=== PATIENT | female | born 1980 | race Caucasian/White ===

== ENCOUNTER 2017-06-23 11:32 | Emergency (ER) | payer OTHER, MEDICAID ==
[~2017-06-23] VITALS: Ht 157.5 cm; Wt 57.1 kg
[~2017-06-23 11:32] MED LIST: ACETAMINOPHEN-1 EAC1 PO; ADDERALL 20 MG20 M1; AMOXICILLIN500 M1 PO; APRI1 EACH; BACTRIM DS TAB1 EACH PO; IBUPROFEN 600600 M1 PO; INDOMETHACIN 2525 MG PO; KLONOPIN1 MG; MEDROLDOSEPACK PO; NOHOMEMEDICATIONS; NORCO 5-325 TA1 EACH PO; PENICILLIN V P500 MG PO; PEPCID20 MG PO; PERCOCET 5-3251 EACH PO; PREDNISONE 10 M10 MG PO; PREDNISONE 20 M20 MG PO; TRIAMCINOLONE A15 G1 TP; TRIAMCINOLONE A80 G2 TOP; VENTOLIN HFA 1818 GM INH
[2017-06-23] MEDS ORDERED: HYDROCODONE-AP1 EAC6 PO (11:58)
[2017-06-23] MEDS ORDERED: ROBAXIN 750 MG750 M1 PO (11:58)
[2017-06-23 12:21] VITALS: BP 145/70
== END 2017-06-23 12:21 | disposition home or self-care (01) ==
LOC: M.ERS 11:32
DX: M54.5 Low back pain (principal); F90.9 Attention-deficit hyperactivity disorder, unspecified type; Z88.5 Allergy status to narcotic agent; Z88.6 Allergy status to analgesic agent; Z91.041 Radiographic dye allergy status

== ENCOUNTER 2017-06-26 14:36 | Emergency (ER) | payer OTHER, MEDICAID ==
[~2017-06-26] VITALS: Ht 157.5 cm; Wt 57.1 kg
[~2017-06-26 14:36] MED LIST changes: +HYDROCODONE-AP1 EAC6 PO; +ROBAXIN 750 MG750 M1 PO
[2017-06-26 14:42] VITALS: BP 132/74
[2017-06-26] MEDS ORDERED: FLEXERIL PO (15:04)
[2017-06-26] MEDS ORDERED: MEDROLDOSEPACK PO (15:05)
== END 2017-06-26 15:14 | disposition home or self-care (01) ==
LOC: M.ERS 14:36
DX: S70.01XA Contusion of right hip, initial encounter (principal); M54.32 Sciatica, left side; F90.9 Attention-deficit hyperactivity disorder, unspecified type; F17.200 Nicotine dependence, unspecified, uncomplicated; Z91.041 Radiographic dye allergy status; Z88.5 Allergy status to narcotic agent; Z88.6 Allergy status to analgesic agent; W18.2XXA Fall in (into) shower or empty bathtub, initial encounter; Y93.89 Activity, other specified; Y92.89 Other specified places as the place of occurrence of the external cause; Y99.8 Other external cause status

== ENCOUNTER 2017-07-11 10:55 | Emergency (ER) | payer OTHER, MEDICAID ==
[~2017-07-11] VITALS: Ht 157.5 cm; Wt 56.2 kg
[~2017-07-11 10:55] MED LIST changes: +FLEXERIL PO
[2017-07-11 11:04] VITALS: BP 146/94
[2017-07-11] MEDS ORDERED: CLONAZEPAM 1 MG1 M1 PO (11:11)
[2017-07-11 11:32] LABS: ABSOLUTE BASOPHILS 0.1 thou/uL (0.0-0.2); ABSOLUTE EOSINOPHILS 0.2 thou/uL (0.0-0.7); ABSOLUTE LYMPHOCYTES 3.3 thou/uL (0.8-5.3); ABSOLUTE MONOCYTES 0.6 thou/uL (0.0-1.2); ABSOLUTE NEUTROPHILS 6.8 thou/uL (1.6-8.1); BASOPHILS 0.7 %; HEMATOCRIT 37.4 % (37.0-47.0); HEMOGLOBIN 12.5 gm/dL (12.0-15.0); MCH 29.1 pg (26.0-34.0); MCHC 33.4 g/dL (28.0-37.0); MONOCYTES 5.8 %; MPV 7.1 fl. (7.2-11.1); NUCLEATED RBCS 0 /100WBC; PLATELET COUNT* 368 thou/uL (150-400); POLYS 61.5 %; RDW-CV 13.2 % (10.5-14.5); WBC 11.1 thou/uL (4.0-11.0)
[2017-07-11 11:41] LABS: ANION GAP 9 mmol/L (7-16); BUN 11 mg/dL (7-18); CALCIUM 8.7 mg/dL (8.5-10.1); CHLORIDE 101 mmol/L (98-107); CO2 27 mmol/L (21-32); CREATININE 0.9 mg/dL (0.6-1.3); GLUCOSE 150 mg/dL (70-99); POTASSIUM 3.2 mmol/L (3.5-5.1); SODIUM 137 mmol/L (136-145)
[2017-07-11 11:45] LABS: APTT 30.1 Seconds (25.0-31.3); INR 1.1; PROTIME 10.4 Seconds (9.20-11.50)
[2017-07-11 11:51] LABS: ALBUMIN 3.7 g/dL (3.4-5.0); ALKALINE PHOSPHATASE 58 U/L (46-116); LIPASE 83 U/L (73-393); NT-PRO BRAIN NAT PEPTIDE 78 pg/mL (<300); SGOT 18 U/L (15-37); SGPT 23 U/L (30-65); TOTAL BILIRUBIN 0.7 mg/dL (<0.1-1.0); TOTAL PROTEIN 7.3 g/dL (6.4-8.2); TROPONIN-I LEVEL <0.06 ng/mL (<0.06)
--- NOTE | 2017-07-11 12:26 | NUR ---
PT STATES SHE DOES NOT LIKE HOW THE NITRO MAKES HER FEEL. PT CONSENTED TO TAKE THE 2ND NITRO PILL. PT'S BLOOD PRESSURE BEFORE TAKING THE 2ND NITROGLYCERIN IS 141/96.
[2017-07-11 14:06] VITALS: BP 140/85
[2017-07-11 15:38] VITALS: BP 131/88
--- NOTE | 2017-07-11 16:34 | CARD ---
[address] [address] CARDIAC CATH REPORT Name: ANGELIA MELO Room: [facility]- ADM IN M.R.#: [id number] Admission: 07/11/17 Attend Phys: Celia Coffey Discharge: Date of : 80 Report #: [id number] THIS REPORT FOR: //name// APPROVED REPORT Patient Details Patient Status: ED Room #: The patient is a 36 year-old female Event Personnel Remy Marquez Ict Sales Assistant, Brittany Jackson RN Horn Player, Joaquin Winters (R) Monitor, AmyMary correa RTR Scrub Procedures Performed Left Heart Cath w/or w/o Coronaries Procedure Narrative A 6fr Ultimum Sheath sheath was inserted into the Right Femoral Artery. Coronary angiography was performed using coronary diagnostic catheters. The right coronary system was accessed and visualized with a Diagnostic JR4 catheter. The left coronary system was accessed and visualized with a Diagnostic JL 4 catheter. The left ventricle was accessed and visualized with a Diagnostic Angled Pig catheter. Closure device was deployed with a Fr MynxGrip 6/7F. The patient tolerated the procedure well and there were no complications associated with the procedure. Intraoperative Conscious Sedation Sedation start time: 14:28 Case end Time: 15:01 Fentanyl 75 mcg Versed 3 mg Fluoro Time: 1.7 minutes Dose: DAP 27703 cGycm2 253 mGy Contrast Type and Amount: Omnipaque 105 ml Diagnostic Cath Left Main Normal and long. LAD Normal. Diagonal 1 Large branched and normal. Diagonal 2 Moderate caliber normal. Circumflex Normal. OM1 Large and branched and normal. Right Coronary Normal[place] [address] CARDIAC CATH REPORT Name: ANGELIA MELO Room: [address] IN [facility]#: [id number] Admission: 07/11/17 Attend Phys: Celia Coffey Discharge: Date of : 80 Report #: [id number] RPLV Normal. Left Ventriculography The left ventricle is normal in size with normal contractility. The left ventricular ejection fraction is estimated to be 60-65%. Hemodynamics The aortic pressure is 118/74 mmHg with a mean of 92 mmHg. The left ventricular pressure is 156/3 mmHg with a mean of mmHg. The left ventricular end diastolic pressure is 13 mmHg. Conclusion 1. Normal coronary arteries. 2. Normal left ventricular systolic function. 3. Normal left ventricular end-diastolic pressure. Recommendations 1. Continue current medical. Medications Administered 1. Smoking cessation strongly advised. <ELECTRONICALLY SIGNED> By: Remy Marquez MD, [facility] 07/11/17 1634 1634 1634[facility] Hospital[facility]igel Marquez MD, FACC /INF
--- NOTE | 2017-07-11 16:36 | EKG ---
[place] [address] ELECTROCARDIOGRAM REPORT Name: KAMERONANGELIA LOPEZ Room: [place] [address] ADM IN .R.#: [id number] Admission: 07/11/17 Attend Phys: Celia Coffey Discharge: Date of : 80 Report #: [id number] THIS REPORT FOR: //name// [facility] ED Test Date: 2017-07-11 Test Time: 12:42:16 Pat Name: ANGELIA MELO Department: Room: [facility] Gender: F C[place] Report Developer: Donald SIMON : 1980 Requested By: Marty Bull Order Number: [id number] MD: Remy Marquez Measurements Intervals [place] Rate: 97 P: 79 AL: 116 QRS: 81 QRSD: 90 T: -88 QT: 343 QTc: 436 Interpretive Statements Sinus rhythm Borderline short AL interval Borderline repolarization abnormality No previous ECG available for comparison Electronically Signed On 07-11-2017 16:36:36 SALES AND MARKETING ANALYST by Remy Marquez [email or web address] <ELECTRONICALLY SIGNED> By: Remy Marquez MD, [facility] 07/11/17 1636 1242 1242 Remy Marquez MD, FACC /EPI
--- NOTE | 2017-07-11 16:36 | EKG ---
[place] [address] ELECTROCARDIOGRAM REPORT Name: KAMERONANGELIA LOPEZ Room: [place] [address] ADM IN .R.#: [id number] Admission: 07/11/17 Attend Phys: Celia Coffey Discharge: Date of : 80 Report #: [id number] THIS REPORT FOR: //name// [facility] ED Test Date: 2017-07-11 Test Time: 11:04:42 Pat Name: ANGELIA MELO Department: Room: [facility] Gender: F House Calls Nurse: : 1980 Requested By: Marty Bull Order Number: [id number] MD: Remy Marquez Measurements Intervals [place] Rate: 90 P: 78 GA: 125 QRS: 81 QRSD: 92 T: 49 QT: 369 QTc: 452 Interpretive Statements Sinus rhythm Minimal ST depression, inferior leads No previous ECG available for comparison Electronically Signed On 07-11-2017 16:36:00 DOCUMENT CONTROLLER by Remy Marquez [email or web address] <ELECTRONICALLY SIGNED> By: Remy Marquez MD, [facility] 07/11/17 1636 1104 1104 Remy Marquez MD, FACC /EPI
[2017-07-11 16:55] VITALS: BP 131/88
--- NOTE | 2017-07-12 08:51 | CON ---
[address] [address] CONSULTATION Name: ANGELIA MELO Room: [place] [address] ADM IN M.R.#: [id number] Admission: 07/11/17 Attend Phys: Celia Coffey Discharge: Date of : 80 Report #: [id number] THIS REPORT FOR: //name// CC: Dr. Armand BOB physician/PCP Jared Hua INDICATION: Unstable angina. HISTORY OF PRESENT ILLNESS: The patient is a 36-year-old white female whose only known cardiac risk factor is tobacco use and family history of premature atherosclerotic coronary artery disease. She does not know whether she has high blood pressure, hyperlipidemia or diabetes. Last evening, she had midsternal chest discomfort radiating to the left shoulder and jaw and down the left arm. She had recurrence of this discomfort this morning. She was seen in the Emergency Room. Her initial EKG was fairly unremarkable with recurrent arm and neck pain. She had another EKG that showed significant ST-segment depression suggesting ischemia. The patient denies any prior cardiac history. She denies orthopnea. She does have some mild dyspnea on exertion. She is without other cardiac complaints at this time. PAST MEDICAL HISTORY: 1. ADHD. 2. Chronic tobacco use. 3. Cervical dysplasia. PAST SURGICAL HISTORY: Cervical intervention for cervical dysplasia. FAMILY HISTORY: The patient's father had his first myocardial infarction in his 40s. in his 50s. SOCIAL HISTORY: The patient smokes a pack of cigarettes daily, drinks alcohol occasionally. She is . ALLERGIES: IV CONTRAST. CURRENT MEDICATIONS: Adderall 20 mg daily, clonazepam 1 mg p.r.n. REVIEW OF SYSTEMS: A 14-point review of systems is positive for remote possible history of seizures. She has a cough that is nonproductive. She has occasional palpitations. She has chest discomfort as outlined above. She reports cervical dysplasia, remote history of anemia. She has seasonal allergies. She has medical allergies as outlined above. She reports anxiety without depression. She has partial upper plate. Otherwise, 14-point review [place] [address] CONSULTATION Name: ANGELIA MELO Room: [address] IN [facility]#: [id number] Admission: 07/11/17 Attend Phys: Celia Coffey Discharge: Date of : 80 Report #: [id number] PHYSICAL EXAMINATION: VITAL SIGNS: Stable. Blood pressure 132/87, pulse 97 regular. GENERAL: This is a pleasant young lady who does not appear to be in acute distress. Mood and affect appropriate. HEENT: Extraocular muscles intact. Mucous membranes moist. NECK: Shows no jugular venous distention. There are no carotid bruits. CHEST: Reveals clear lung rincon without wheezes, rales or rhonchi. CARDIOVASCULAR: Reveals a regular rhythm with normal S1 and S2. I do not appreciate gallop or murmur. ABDOMEN: Reveals normal bowel sounds. The abdomen is soft, nontender. EXTREMITIES: Shows no edema. Peripheral pulses are 2+ and easily palpable. SKIN: Warm and dry. LABORATORY DATA: A 12-lead EKG shows sinus rhythm with ST segment depression diffusely suggestive of ischemia. Portable chest x-ray shows no acute process. Labs reviewed. Initial troponin less than 0.06. IMPRESSION AND RECOMMENDATIONS: 1. The patient is having typical chest pain with EKG changes suggestive of at least unstable angina. We will proceed to the cardiac catheterization lab for angiography and possible percutaneous coronary intervention. She will be premedicated with Solu-Medrol for her CONTRAST ALLERGY. 2. Chronic tobacco use, smoking cessation advised. 3. Lipid status unknown. We will check fasting lipid profile. <ELECTRONICALLY SIGNED> By: Remy Marquez MD, FACC 07/12/17 0851 1328 1806Remy Marquez MD, FACC /nt
[2017-07-12] MEDS ORDERED: ASPIR 8181 MG PO (19:55)
[2017-07-12] MEDS ORDERED: HYDROCODONE-AP1 EAC6 PO (20:25)
== END 2017-07-11 16:55 | disposition home or self-care (01) ==
LOC: M.CL 10:55 → M.ERS 10:55 → M.TBA-ER 13:42 → M.ERS 13:42
PROVIDERS: Emergency Medicine Emergency Medical Services
DX: I20.0 Unstable angina (principal); F90.9 Attention-deficit hyperactivity disorder, unspecified type; F41.9 Anxiety disorder, unspecified; F17.200 Nicotine dependence, unspecified, uncomplicated; Z91.041 Radiographic dye allergy status; Z88.5 Allergy status to narcotic agent; Z88.6 Allergy status to analgesic agent

== ENCOUNTER 2017-07-12 19:39 | Emergency (ER) | payer OTHER, MEDICAID ==
[~2017-07-12] VITALS: Ht 157.5 cm; Wt 56.7 kg
[~2017-07-12 19:39] MED LIST changes: +CLONAZEPAM 1 MG1 M1 PO
[2017-07-12 19:51] VITALS: BP 132/79
[2017-07-12] MEDS ORDERED: ASPIR 8181 MG PO (19:55)
[2017-07-12] MEDS ORDERED: HYDROCODONE-AP1 EAC6 PO (20:25)
== END 2017-07-12 20:35 | disposition home or self-care (01) ==
LOC: M.ERS 19:39
DX: G89.18 Other acute postprocedural pain (principal); F41.9 Anxiety disorder, unspecified; F90.9 Attention-deficit hyperactivity disorder, unspecified type; F17.200 Nicotine dependence, unspecified, uncomplicated; Z88.5 Allergy status to narcotic agent; Z88.6 Allergy status to analgesic agent; Z91.041 Radiographic dye allergy status

== ENCOUNTER 2017-07-24 17:23 | Emergency (ER) | payer OTHER, MEDICAID ==
[~2017-07-24] VITALS: Ht 157.5 cm; Wt 56.2 kg
[~2017-07-24 17:23] MED LIST changes: +ASPIR 8181 MG PO
[2017-07-24] MEDS ORDERED: CLONAZEPAM 0.50.5 M1 PO (17:54)
[2017-07-24 18:06] VITALS: BP 133/86
== END 2017-07-24 18:08 | disposition home or self-care (01) ==
LOC: M.ERS 17:23
DX: F41.9 Anxiety disorder, unspecified (principal); Z76.0 Encounter for issue of repeat prescription; F90.9 Attention-deficit hyperactivity disorder, unspecified type; F17.200 Nicotine dependence, unspecified, uncomplicated; Z88.6 Allergy status to analgesic agent; Z91.041 Radiographic dye allergy status; Z88.5 Allergy status to narcotic agent

== ENCOUNTER 2017-08-24 11:09 | Emergency (ER) | payer OTHER, MEDICAID ==
[~2017-08-24] VITALS: Ht 157.5 cm; Wt 56.7 kg
[~2017-08-24 11:09] MED LIST changes: +CLONAZEPAM 0.50.5 M1 PO
[2017-08-24] MEDS ORDERED: HYDROCODONE-AP1 EAC6 PO (11:36)
[2017-08-24 11:38] VITALS: BP 136/68
== END 2017-08-24 11:45 | disposition home or self-care (01) ==
LOC: M.ERS 11:09
DX: M54.5 Low back pain (principal); F90.9 Attention-deficit hyperactivity disorder, unspecified type; F41.9 Anxiety disorder, unspecified; Z88.6 Allergy status to analgesic agent; Z91.041 Radiographic dye allergy status

== ENCOUNTER 2018-02-13 20:59 | Emergency (ER) | payer OTHER, MEDICAID ==
[~2018-02-13] VITALS: Ht 157.5 cm; Wt 72.6 kg
[2018-02-13] MEDS ORDERED: NABUMETONE 750750 M1 PO (21:57)
[2018-02-13] MEDS ORDERED: AUGMENTIN 875-1 EACH PO (21:57)
[2018-02-13] MEDS ORDERED: MEDROLDOSEPACK PO (21:57)
[2018-02-13] MEDS ORDERED: NORCO 5-325 TA1 EACH PO (21:57)
[2018-02-13 22:12] VITALS: BP 127/77
== END 2018-02-13 22:15 | disposition home or self-care (01) ==
LOC: M.ERS 20:59
DX: H66.92 Otitis media, unspecified, left ear (principal); M54.16 Radiculopathy, lumbar region; F41.9 Anxiety disorder, unspecified; F90.9 Attention-deficit hyperactivity disorder, unspecified type; F17.210 Nicotine dependence, cigarettes, uncomplicated; Z91.041 Radiographic dye allergy status; Z88.6 Allergy status to analgesic agent

== ENCOUNTER 2018-03-31 15:37 | Emergency (ER) | payer OTHER, MEDICAID ==
[~2018-03-31] VITALS: Ht 157.5 cm; Wt 52.6 kg
[~2018-03-31 15:37] MED LIST changes: +AUGMENTIN 875-1 EACH PO; +NABUMETONE 750750 M1 PO
[2018-03-31] MEDS ORDERED: NORCO 5-325 TA1 EACH PO (16:04)
[2018-03-31] MEDS ORDERED: MEDROLDOSEPACK PO (16:04)
[2018-03-31 16:29] VITALS: BP 131/77
== END 2018-03-31 16:30 | disposition home or self-care (01) ==
LOC: M.ERS 15:37
DX: M54.32 Sciatica, left side (principal); F41.9 Anxiety disorder, unspecified; F17.210 Nicotine dependence, cigarettes, uncomplicated; Z88.5 Allergy status to narcotic agent; Z91.041 Radiographic dye allergy status

== ENCOUNTER 2018-09-08 15:31 | Emergency (ER) | payer OTHER, MEDICAID ==
[~2018-09-08] VITALS: Ht 157.5 cm; Wt 53.5 kg
[2018-09-08] MEDS ORDERED: DOXYCYCLINE 10100 MG PO (15:40)
[2018-09-08] MEDS ORDERED: NAPROSYN500 MG PO (17:06)
[2018-09-08] MEDS ORDERED: MEDROLDOSEPACK PO (17:06)
[2018-09-08] MEDS ORDERED: NORCO 5-325 TA1 EACH PO (17:06)
[2018-09-08 17:14] VITALS: BP 139/93
== END 2018-09-08 17:15 | disposition home or self-care (01) ==
LOC: M.ERS 15:31
DX: M54.42 Lumbago with sciatica, left side (principal); M54.41 Lumbago with sciatica, right side; G89.29 Other chronic pain; F41.9 Anxiety disorder, unspecified; Z88.5 Allergy status to narcotic agent; Z91.041 Radiographic dye allergy status

== ENCOUNTER 2018-12-23 12:44 | Emergency (ER) | payer OTHER ==
[~2018-12-23] VITALS: Ht 157.5 cm; Wt 57.1 kg
[~2018-12-23 12:44] MED LIST changes: +DOXYCYCLINE 10100 MG PO; +NAPROSYN500 MG PO
[2018-12-23] MEDS ORDERED: ASPIR 8181 MG PO (12:56)
[2018-12-23] MEDS ORDERED: MEDROLDOSEPACK PO (13:03)
[2018-12-23] MEDS ORDERED: NAPROSYN500 MG PO (13:03)
[2018-12-23] MEDS ORDERED: NORCO 5-325 TA1 EAC1 PO (13:03)
[2018-12-23 13:20] VITALS: BP 130/79
== END 2018-12-23 13:22 | disposition home or self-care (01) ==
LOC: M.ERS 12:44
DX: M54.42 Lumbago with sciatica, left side (principal); G89.29 Other chronic pain; F90.9 Attention-deficit hyperactivity disorder, unspecified type; F41.9 Anxiety disorder, unspecified; M19.90 Unspecified osteoarthritis, unspecified site; Z91.041 Radiographic dye allergy status; Z88.5 Allergy status to narcotic agent; Z88.6 Allergy status to analgesic agent

== ENCOUNTER 2019-03-09 08:54 | Emergency (ER) | payer OTHER ==
[~2019-03-09] VITALS: Ht 157.5 cm; Wt 54.4 kg
[~2019-03-09 08:54] MED LIST changes: +NORCO 5-325 TA1 EAC1 PO
[2019-03-09] MEDS ORDERED: NORCO 5-325 TA1 EAC1 PO (09:31)
[2019-03-09] MEDS ORDERED: IBUPROFEN 800800 M1 PO (09:31)
[2019-03-09] MEDS ORDERED: PREDNISONE50 MG PO (09:31)
[2019-03-09] MEDS ORDERED: FLEXERIL PO (09:31)
[2019-03-09 09:46] VITALS: BP 121/52
== END 2019-03-09 09:47 | disposition home or self-care (01) ==
LOC: M.ERS 08:54
DX: M54.42 Lumbago with sciatica, left side (principal); F90.9 Attention-deficit hyperactivity disorder, unspecified type; F41.9 Anxiety disorder, unspecified; Z91.041 Radiographic dye allergy status; Z88.5 Allergy status to narcotic agent; Z88.8 Allergy status to other drugs, medicaments and biological substances